=== PATIENT | female | born 2000 | race Caucasian/White ===

== ENCOUNTER → 2021-02-13 | Outpatient (CLI) | payer SELFPAY | LOC: M LABSMTC 13:12 | PROVIDERS: ATTEND Pediatrics | DX: Z20.822 Contact with and (suspected) exposure to COVID-19 (principal) ==

== ENCOUNTER → 2022-04-25 | Outpatient (CLI) | payer MEDICAID, OTHER | LOC: M WHC 08:36 → MERGE 08:36 | PROVIDERS: ATTEND Specialist | DX: Z34.82 Encounter for supervision of other normal pregnancy, second trimester (principal); Z3A.20 20 weeks gestation of pregnancy ==

== ENCOUNTER → 2022-06-02 | Outpatient (CLI) | payer OTHER ==
[2022-06-02 14:49] LABS: HEMATOCRIT 30.7 % (36.0-47.0); HEMOGLOBIN 9.8 g/dl (12.0-15.5); MEAN CORPUSCULAR HEMOGLOBIN 27.3 pg (27.0-33.0); MEAN CORPUSCULAR HGB CONC 31.9 g/dl (32.0-36.5); MEAN CORPUSCULAR VOLUME 85.5 fl (80.0-96.0); PLATELET COUNT, AUTOMATED 243 10^3/uL (150-450); RED BLOOD COUNT 3.59 10^6/uL (4.00-5.40); WHITE BLOOD COUNT 10.2 10^3/uL (4.0-10.0)
[2022-06-02 15:51] LABS: GC DNA AMPLIFICATION NEGATIVE (NEGATIVE)
== END ==
LOC: M PLALAB 09:24
PROVIDERS: ATTEND Advanced Practice Midwife
DX: Z34.02 Encounter for supervision of normal first pregnancy, second trimester (principal); Z3A.00 Weeks of gestation of pregnancy not specified

== ENCOUNTER → 2022-06-08 | Outpatient (CLI) | payer OTHER | LOC: M WHC 10:30 | PROVIDERS: ATTEND Advanced Practice Midwife | DX: Z34.82 Encounter for supervision of other normal pregnancy, second trimester (principal); Z3A.26 26 weeks gestation of pregnancy ==

== ENCOUNTER → 2022-08-22 | Outpatient (REF) | payer OTHER, MEDICAID | LOC: M SFHCWAGY 13:11 | PROVIDERS: ATTEND Specialist | DX: Z34.83 Encounter for supervision of other normal pregnancy, third trimester (principal) ==

== ENCOUNTER 2022-09-08 06:10 | Inpatient (IN) | payer OTHER, MEDICAID ==
[2022-09-08] VITALS (7 sets, daily range): BP systolic 111–135; BP diastolic 63–92; O2SAT 100
[~2022-09-08] VITALS: Ht 167.6 cm; Wt 147.0 kg
[2022-09-08] MEDS ORDERED: OXYTOCIN INJ 10UNITS/ML 1ML VIAL As Ordered ONE (06:15)
[2022-09-08] MEDS ORDERED: LIDOCAINE 1% MDV 20ML VIAL As Ordered ONE (06:30)
[2022-09-08] MEDS ORDERED: METHYLERGONOVINE MALEATE 0.2MG/ML 1ML VIAL IM PRN (07:15)
[2022-09-08] MEDS ORDERED: LIDOCAINE 1% MDV 20ML VIAL INFIL PRN (07:15)
[2022-09-08] MEDS ORDERED: OXYTOCIN DRIP 30 UNITS in IV 1 EA IV PRN (07:15)
[2022-09-08] MEDS ORDERED: OXYTOCIN INJ 10UNITS/ML 1ML VIAL IM PRN (07:15)
[2022-09-08 07:16] LABS: HEMATOCRIT 37.9 % (36.0-47.0); HEMOGLOBIN 12.4 g/dl (12.0-15.5); MEAN CORPUSCULAR HEMOGLOBIN 28.2 pg (27.0-33.0); MEAN CORPUSCULAR HGB CONC 32.7 g/dl (32.0-36.5); MEAN CORPUSCULAR VOLUME 86.1 fl (80.0-96.0); PLATELET COUNT, AUTOMATED 222 10^3/uL (150-450); WHITE BLOOD COUNT 15.5 10^3/uL (4.0-10.0)
[2022-09-08] MEDS ORDERED: diphenhydrAMINE 50MG CAP PO ONE (07:35)
[2022-09-08] MEDS ORDERED: ACETAMINOPHEN 500 MG TAB PO PRN (07:45)
[2022-09-08] MEDS ORDERED: METHYLERGONOVINE MALEATE 0.2 MG TAB PO PRN (07:45)
[2022-09-08] MEDS ORDERED: IBUPROFEN 800 MG TAB PO PRN (07:45)
[2022-09-08] MEDS ORDERED: IBUPROFEN 600MG TAB PO PRN (07:45)
[2022-09-08] MEDS ORDERED: DOCUSATE SODIUM 100MG CAPSULE PO PRN (07:45)
[2022-09-08] MEDS ORDERED: RHOGAM 300MCG (1500IU) INJ IM SCH (07:45)
[2022-09-08] MEDS ORDERED: ACETAMINOPHEN TAB 650MG DOSE (2X325MG) PO PRN (07:45)
[2022-09-08] MEDS ORDERED: DIBUCAINE 1% OINTMENT 30GM TOP PRN (07:45)
[2022-09-08] MEDS: PRENATAL VITAMINS CHEWABLE TABLET PO SCH (09:00)
[2022-09-09 06:00] VITALS: BP 120/63; O2SAT 99
[2022-09-09] MEDS: PRENATAL VITAMINS CHEWABLE TABLET PO SCH (08:03)
[2022-09-10] MEDS ORDERED: MEASLES,MUMPS,RUBELLA VACCINE INJ (MMR-II) SC.IMMUN ONE (09:00)
== END 2022-09-09 12:51 | disposition home or self-care (01) | DRG 560 ==
LOC: M LDO 06:10 → M LDI 06:11 → M OBS 09:11
PROVIDERS: ADMIT Advanced Practice Midwife; ATTEND Advanced Practice Midwife
PROC: 10E0XZZ Delivery of Products of Conception, External Approach (ICD-10-PCS; principal; 2022-09-08)
PROC: 0HQ9XZZ Repair Perineum Skin, External Approach (ICD-10-PCS; 2022-09-08)
DX: O77.0 Labor and delivery complicated by meconium in amniotic fluid (principal); O70.0 First degree perineal laceration during delivery; Z37.0 Single live birth; Z3A.39 39 weeks gestation of pregnancy

== ENCOUNTER → 2023-03-06 | Outpatient (REF) | payer MEDICAID, OTHER | LOC: M SFHCWAGY 11:20 | PROVIDERS: ATTEND Nurse Practitioner Family | DX: Z12.4 Encounter for screening for malignant neoplasm of cervix (principal); R87.612 Low grade squamous intraepithelial lesion on cytologic smear of cervix (LGSIL) ==

== ENCOUNTER 2024-01-01 12:25 | Outpatient (RCR) | payer OTHER | END 2024-01-06 | LOC: M PT 12:25 | PROVIDERS: ATTEND Obstetrics & Gynecology | DX: N94.10 Unspecified dyspareunia (principal) ==

== ENCOUNTER 2024-01-22 07:45 | Outpatient (RCR) | payer OTHER | END 2024-02-06 | LOC: M PT 07:45 | PROVIDERS: ATTEND Obstetrics & Gynecology | DX: N94.10 Unspecified dyspareunia (principal) ==

== ENCOUNTER 2024-03-04 07:45 | Outpatient (RCR) | payer OTHER | END 2024-03-08 | LOC: M PT 07:45 | PROVIDERS: ATTEND Obstetrics & Gynecology | DX: N94.10 Unspecified dyspareunia (principal) ==

== ENCOUNTER → 2024-04-05 | Outpatient (REF) | payer MEDICAID, OTHER ==
[2024-04-09 13:23] LABS: HPV APTIMA Detected (Not Detected)
== END ==
LOC: M SFHCWAGY 17:08
PROVIDERS: ATTEND Obstetrics & Gynecology
DX: R87.610 Atypical squamous cells of undetermined significance on cytologic smear of cervix (ASC-US) (principal)